=== PATIENT | female | born 1990 | race Caucasian/White ===

== ENCOUNTER 2017-08-22 21:22 | Emergency (ER) | payer SELFPAY ==
[~2017-08-22] VITALS: Ht 172.7 cm; Wt 65.8 kg
[2017-08-22 22:33] LABS: APPEARANCE,URINE SLIGHTLY CLOUDY; KETONES,URINE 1+ (NEGATIVE); LEUKOCYTE ESTERASE ,URINE 3+ (NEGATIVE); NITRITE,URINE NEGATIVE (NEGATIVE); PH,URINE 6 (4.5-8.0); PROTEIN,URINE NEGATIVE (NEGATIVE); UROBILINOGEN,URINE NORMAL MG/DL (0.0-1.0)
[2017-08-22 22:41] LABS: BASOPHILS % (AUTO) 1.1 % (0.0-2.0); EOSINOPHILS % (AUTO) 4.4 % (0.0-3.0); LYMPHOCYTES % (AUTO) 33.6 % (20.0-45.0); MEAN CORPUSCULAR HGB CONC 32.6 G/DL (32.0-36.0); MEAN CORPUSCULAR VOLUME 95 FL (80-99); MEAN PLATELET VOLUME 7.5 FL (6.5-10.1); MONOCYTES % (AUTO) 8.2 % (1.0-10.0); NEUTROPHILS % (AUTO) 52.7 % (45.0-75.0); PLATELET COUNT 179 K/UL (150-450); RED CELL DISTRIBUTION WIDTH 10.7 % (11.6-14.8); WHITE BLOOD COUNT 8.1 K/UL (4.8-10.8)
[2017-08-22 22:49] LABS: BACTERIA,URINE MODERATE /HPF; SQUAMOUS EPITHELIAL CELL,UR MANY /LPF (NONE/OCC); WBC,URINE 15-20 /HPF (0 - 2)
[2017-08-22 23:06] LABS: ALANINE AMINOTRANSFERASE 14 U/L (12-78); ALBUMIN/GLOBULIN RATIO 1.1 (1.0-2.7); ANION GAP 8 mmol/L (5-15); ASPARTATE AMINO TRANSFERASE 12 U/L (15-37); CALCIUM 8.9 MG/DL (8.5-10.1); CARBON DIOXIDE 26 MMOL/L (21-32); CHLORIDE 105 MMOL/L (98-107); CREATININE 0.6 MG/DL (0.55-1.30); GLOMERULAR FILTRATION RATE > 60 mL/min (>60); POTASSIUM 3.7 MMOL/L (3.5-5.1); SODIUM 139 MMOL/L (136-145)
[2017-08-22] MEDS ORDERED: CEFPODOXIME PR100 MG PO (23:23)
[2017-08-22 23:50] VITALS: BP 131/68
--- NOTE | 2017-08-23 05:30 | Emergency Room Report ---
History of Present Illness General Chief Complaint: Complications Source: Patient Present Illness HPI 26-year-old female blood weeks presenting with one month of vaginal spotting and one day of abdominal pain Only spotting has not soaked any pads, no passage of clots, crampy abdominal pain suprapubic for one day. Denies fever, chills, n/v, diarrhea, dysuria. Last sono was performed 5 weeks ago which showed IUP with good FHR. Denies hx of ectopic pregnancies. Allergies: Coded Allergies: No Known Allergies (Unverified , 08/22/17) Patient History Past Medical History: see triage record Past Surgical History: none Pertinent Family History: none Last Menstrual Period: unk Now: Yes Reviewed Nursing Documentation: PMH: Agreed, PSxH: Agreed Nursing Documentation-PMH Past Medical History: No Stated History Review of Systems All Other Systems: negative except mentioned in HPI Physical Exam Vital Signs Date Time Temp Pulse Resp B/P (MAP) Pulse Ox O2 Delivery O2 Flow Rate FiO2 08/22/17 21:32 97.9 77 18 105/70 99 Room Air Sp02 EP Interpretation: reviewed, normal General Appearance: alert, GCS 15, non-toxic, mild distress Head: normocephalic, atraumatic Eyes: bilateral eye normal inspection, bilateral eye PERRL, bilateral eye EOMI ENT: normal ENT inspection, normal pharynx, normal voice, moist mucus membranes Neck: normal inspection, full range of motion, supple Respiratory: normal inspection, lungs clear, normal breath sounds, no respiratory distress, no retraction, no wheezing, speaking full sentences, chest symmetrical Cardiovascular #1: normal inspection, regular rate, rhythm, no edema, normal capillary refill Cardiovascular #2: 2+ radial (R), 2+ radial (L) Gastrointestinal: normal inspection, non tender, soft, non-distended, no guarding Musculoskeletal: normal inspection, back normal, normal range of motion, non- tender Neurologic: normal inspection, alert, oriented x3, responsive, motor strength/ tone normal, sensory intact, normal gait, speech normal Psychiatric: normal inspection, judgement/insight normal, memory normal, anxious Skin: normal inspection, normal color, no rash, warm/dry, well hydrated, normal turgor Medical Decision Making Diagnostic Impression: Primary Impression: UTI (urinary tract infection) Additional Impression: Threatened ER Course 26-year-old female weeks presenting with suprapubic pain, vaginal spotting for one month DDX: threatened / inevitable vs. ectopic UTI Plan: cbc, bmp, bhcg, type and screen, ua, ucx pelvic sono ER course: Pelvic sono: IUP with good FHR. Heart rate 160 Pt remains stable/nontoxic appearing in ED. No vaginal bleeding in the emergency room RhoGAM and not able to be administered overnight Disposition: Patient will be discharged to home. Strict return precautions to discussed with patient such as high fever, chills, abdominal pain, intractable nausea or vomiting, worsening/heavy bleeding, lightheadedness or syncope. Patient verbalized understanding. Patient instructed to follow up with her OBGYN within 48 hours without fail for repeat bhcg and sonogram. Patient agrees with plan. Please note that this Emergency Department Report was dictated using [employer] engineer technology software, occasionally this can lead to erroneous entry secondary to interpretation by the dictation equipment. Laboratory Tests Test 08/22/17 22:00 White Blood Count 8.1 K/UL (4.8-10.8) Red Blood Count 3.80 M/UL (4.20-5.40) L Hemoglobin 11.8 G/DL (12.0-16.0) L Hematocrit 36.1 % (37.0-47.0) L Mean Corpuscular Volume 95 FL (80-99) Mean Corpuscular Hemoglobin 31.0 PG (27.0-31.0) Mean Corpuscular Hemoglobin Concent 32.6 G/DL (32.0-36.0) Red Cell Distribution Width 10.7 % (11.6-14.8) L Platelet Count 179 K/UL (150-450) Mean Platelet Volume 7.5 FL (6.5-10.1) Neutrophils (%) (Auto) 52.7 % (45.0-75.0) Lymphocytes (%) (Auto) 33.6 % (20.0-45.0) Monocytes (%) (Auto) 8.2 % (1.0-10.0) Eosinophils (%) (Auto) 4.4 % (0.0-3.0) H Basophils (%) (Auto) 1.1 % (0.0-2.0) Urine Color Pale yellow Urine Appearance Slightly cloudy Urine pH 6 (4.5-8.0) Urine Specific [place] 1.025 (1.005-1.035) Urine Protein Negative (NEGATIVE) Urine Glucose (UA) Negative (NEGATIVE) Urine Ketones 1+ (NEGATIVE) H Urine Occult Blood 1+ (NEGATIVE) H Urine Nitrite Negative (NEGATIVE) Urine Bilirubin Negative (NEGATIVE) Urine Urobilinogen Normal MG/DL (0.0-1.0) Urine Leukocyte Esterase 3+ (NEGATIVE) H Urine RBC 2-4 /HPF (0 - 2) H Urine WBC 15-20 /HPF (0 - 2) H Urine Squamous Epithelial Cells Many /LPF (NONE/OCC) H Urine Bacteria Moderate /HPF (NONE) H Urine HCG, Qualitative Positive Sodium Level 139 MMOL/L (136-145) Potassium Level 3.7 MMOL/L (3.5-5.1) Chloride Level 105 MMOL/L (98-107) Carbon Dioxide Level 26 MMOL/L (21-32) Anion Gap 8 mmol/L (5-15) Blood Urea Nitrogen 12 mg/dL (7-18) Creatinine 0.6 MG/DL (0.55-1.30) Estimate Glomerular Filtration Rate > 60 mL/min (>60) Glucose Level 80 MG/DL (74-106) Calcium Level 8.9 MG/DL (8.5-10.1) Total Bilirubin 0.2 MG/DL (0.2-1.0) Aspartate Amino Transferase (AST) 12 U/L (15-37) L Alanine Aminotransferase (ALT) 14 U/L (12-78) Alkaline Phosphatase 30 U/L (46-116) L Total Protein 7.0 G/DL (6.4-8.2) Albumin 3.7 G/DL (3.4-5.0) Globulin 3.3 g/dL Albumin/Globulin Ratio 1.1 (1.0-2.7) Human Chorionic Gonadotropin, Quant 22044 mIU/mL (1-6) H CT/MRI/US Diagnostic Results CT/MRI/US Diagnostic Results : Imaging Test Ordered: Pelvic US Impression IUP with good FHR Last Vital Signs Date Time Temp Pulse Resp B/P (MAP) Pulse Ox O2 Delivery O2 Flow Rate FiO2 08/22/17 23:50 97.9 62 18 131/68 100 Room Air Disposition: HOME, SELF-CARE Condition: Improved Scripts Cefpodoxime Proxetil (CEFPODOXIME PROXETIL) 100 Mg Tablet 100 MG PO Q12HR for 7 Days, #14 TAB 0 Refills Prov: Stanley John M.D. 08/22/17 Referrals: NOT CHOSEN IPA/,REFERRING (PCP) Patient Instructions: Threatened Miscarriage, [id number], Urinary Tract Infection Stanley John M.D. Aug 23, 2017 05:30
--- NOTE | 2017-08-23 11:07 | Diagnostic Imaging Report ---
Indication: PAIN, spotting, patient Technique: Transabdominal and transvaginal images Comparison: None Findings: Exam is very limited, as only minimal images could be obtained due to patient discomfort. Uterus is retroverted, measures 9.5 cm in length by 5.7 cm transverse. Within the endometrium is a gestational sac. This contains a with a crown-rump length of 38 mm, corresponding to an estimated gestational age of 10 weeks 5 days. No definite subchorionic hemorrhage. Is positive heart activity, heart rate 163 beats for minute. The right ovary measures 4 cm in length. Left ovary is not demonstrated. No gross free cul-de-sac fluid Impression: Very limited exam 10 week 5 day single intrauterine , by crown-rump length measurement. No definite unusual features
== END 2017-08-22 23:50 | disposition home or self-care (01) ==
LOC: EMR 21:46
DX: O23.40 Unspecified infection of urinary tract in pregnancy, unspecified trimester (principal); O20.0 Threatened abortion; O26.90 Pregnancy related conditions, unspecified, unspecified trimester; R10.9 Unspecified abdominal pain; O26.859 Spotting complicating pregnancy, unspecified trimester; Z3A.00 Weeks of gestation of pregnancy not specified
CPT/HCPCS: 36415; 76801; 76830; 80053; 81003; 81025; 84702; 85025; 86850; 86900; 86901; 87086; 99284